=== PATIENT | male | born 1990 | race Caucasian/White ===

== ENCOUNTER 2023-02-26 09:18 | Emergency (ER) | payer BC, SELFPAY ==
[2023-02-26 09:27] VITALS: BP 149/106; PULSE 74; RESP 16; O2SAT 98
--- NOTE | 2023-02-26 10:03 | W.ED.GENAD ---
Discharge Plan Disposition Patient Disposition: Home Condition: Stable Discharge Details Clinical Impression: Depression, Chronic post-traumatic stress disorder Primary Care Provider: None,None ED Provider: Emely Grimes Home Meds and New Rx's Prescriptions: Continued cyclobenzaprine 10 mg tablet 10 mg PO TID PRN meloxicam 15 mg tablet 15 mg PO DAILY Discharge Instructions Instructions: Depression (ED), Anxiety (ED) Additional Instructions: Please continue with the safety plan as set forth by [facility] services. They are helping to get you in with local mental health services. Use to include monitoring for warning signs and severe internal coping strategies. They are available at any time at [phone]. If you develop increased depression, thoughts of self-harm, thoughts of harming others please seek care emergently once again. Please also reach out to local therapist this was given to you by other emergency teams. Please discuss medication options further with your primary care at upcoming appointment. Referrals: GERMAN MERLOS NP [ NON-[facility] STAFF PHYSICIAN] - Discharge Data Discharge Date/Time-TO BE ENTERED AT DEPARTURE: 02/26/23 12:36 Medical Decision Making Patient is a pleasant 32-year-old male, company by significant other, with chief complaint of increased anxiety, depression. States that this has been an ongoing issue for the past several years. Has lost many family members or close close to him. He believes that he also suffer from anxiety, depression, PTSD and ADHD prior to these events. 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 He denies ever suffering from SI/HI. Has not worked with MH providers in the past. However, primary care has prescribed temporary prescriptions of xanax and valium which worked well. He has since switch PCP and has not yet worked on his MH concerns. Also advisees that he has been on several antidepressants but that these caused worsening MH. 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 On exam, patient appears nontoxic. BP elevated at 149/106 which he states is chronic. Reports he recently established with local PCP and has upcoming appointment, will discuss then. Have asked rosalinda HAMILTON. CAlled PCP, awaiting call back. Patient seen by , safety plan and referrals set up. Spoke with patients PCP. At this time, as he has had several meds in the past, some of which cause HI, I am concerned about potential SE of starting medication at this time. this is not an acute change in his baseline MH. He feels safe at home, well supported by spouse. He feels like the f/u set up and plan with ALFONSO will be supportive for him. Patient has upcoming appointment in one week with PCP. Strict return precautions given. All of his questions and concerns were addressed, they are in agreement with this plan. HPI General Date/Time Provider Initiated Documentation: 02/26/23 09:51. Limitations to Documentation: no limitations. Information obtained by: patient, family () and RN notes reviewed. History of Present Illness 32 year old M presents to the emergency department with the chief complaint of PTSD, depression, anxiety, ADHD, described as moderate and similar to prior episodes (long history, no acute change), Patient started experiencing this year(s) (has had many losses over recent years) and it has been constant. No relieving factors improve symptom(s), No exacerbating factors reported . Patient notes no other symptoms.. Patient did receive the following treatments prior to arrival, other (hood sbeen on medications historically, none now, good luck with xanax and valium) Related Data Home Medications Medication Instructions Recorded Confirmed cyclobenzaprine 10 mg tablet 10 mg PO TID PRN 02/13/23 02/26/23 meloxicam 15 mg tablet 15 mg PO DAILY 02/13/23 02/26/23 Allergies Allergy/AdvReac Type Severity Reaction Status Date / Time penicillin G Allergy Verified 02/26/23 09:30 General Stated Complaint: Anxiety KLAUDIA: 3 Review of Systems Constitutional Constitutional: Reports as per HPI, Denies chills, Denies fever(s) and Denies weakness Cardiovascular Cardiovascular: Reports as per HPI, Denies chest pain and Denies dyspnea Respiratory Respiratory: Reports as per HPI, Denies cough and Denies dyspnea Integumentary/Breasts Skin/Breast: Reports as per HPI and Denies rash Neurologic Neurologic: Denies abnormal movements, Denies abnormal speech, Denies behavioral changes, Denies paresthesias and Denies weakness Psychiatric Psychiatric: Reports as per HPI, Reports anxiety, Denies behavioral changes, Denies change in appetite, Reports depression, Reports mood swings ( helps during this), Denies homicidal ideation and Denies suicidal ideation (denies ever having SI. historically) PFSH All Active Problems (Updated 02/26/23 @ 12:18 by DARRON Mena) Depression (Chronic) Chronic post-traumatic stress disorder (Acute) Medical History (Updated 02/26/23 @ 12:18 by DARRON Mena) Back muscle spasm Smoker Synovial cyst of popliteal space [Wayne], left knee Social History Smoking/Tobacco Use Status: Current every day Tobacco Type: smokeless tobacco Smoking risk assessment performed?: Yes Drug use: Daily Substance use type: marijuana Do you feel safe at home: Yes Do you feel safe in your relationship?: Yes Exam Const General: cooperative, healthy appearing, comfortable, no acute distress, well developed and well groomed Nutritional Appearance: average body habitus and well nourished Orientation: alert and awake Eyes General: appearance normal, both eyes and all related structures Resp Effort & Inspection: normal respiratory effort, able to speak in complete sentences and no respiratory distress Auscultation: clear to auscultation bilaterally, no rales, no rhonchi and no wheezes Cardio Rate: regular rate Rhythm: regular rhythm Heart Sounds: S1 normal and S2 normal Skin General skin exam: no rashes or lesions noted Trauma: no lacerations or abrasions Neuro General: patient alert and patient awake Cognition: normal cognition Speech: speech normal Gait: normal gait Psych Appearance: grossly normal and well kempt Mental Status: mental status grossly normal Speech and Movement: speech and movement normal Mood: congruent mood Affect: normal affect Attitude: cooperative Thought Process: normal Thought Content: normal Insight: fair Judgment: fair Course Vital Signs Vital signs: Vital Signs Pulse 74 02/26/23 09:27 Respiratory Rate 16 02/26/23 09:27 Blood Pressure 149/106 H 02/26/23 09:27 Pulse Oximetry 98 02/26/23 09:27 Pulse 74 02/26/23 09:27 Respiratory Rate 16 02/26/23 09:27 Respiratory Effort Normal 02/26/23 09:32 Respiratory Depth Normal 02/26/23 09:32 Respiratory Pattern Normal 02/26/23 09:32 Blood Pressure 149/106 H 02/26/23 09:27 Blood Pressure Position Sitting 02/26/23 09:27 Pulse Oximetry 98 02/26/23 09:27 Oxygen Delivery Method Room Air 02/26/23 09:27 Oxygen Flow Rate 0 02/26/23 09:27 Pain Level 0 02/26/23 09:27 PAWSS Have you Been Recently Intoxicated or Drunk Within the Last 30 days?: Yes Have you Ever Experienced Previous Episodes of Alcohol Withdrawal?: No Have you ever Experienced Withdrawal Seizures?: No Have you ever Experienced Delirium Tremens(DT)s?: No Have you ever undergone Alcohol Rehabilitation Treatment (i.e, inpt ot outpatient treatment programs)?: No Have you ever Experienced Blackouts?: No Have you ever Combined Alcohol with other Downers within the last 90 days?: Yes Have you ever Combined Alcohol with any other Substance of Abuse during the last 90 days?: No Positive Blood Alcohol level on Presentation? [PCS.BAL]: No Evidence of Increased Autonomic Activity (i.e. HR>120, tremor, sweating, agitation, nausea)?: No Result: 1
--- NOTE | 2023-02-26 11:28 | NUR.NOTE ---
Nursing Note: care management referral sent for dentist
--- NOTE | 2023-02-26 15:45 | PDOC.MHCN ---
Date of service: 02/26/23 Time of Service: 10:25 PHQ-9 Over the last 2 weeks, how often have you been bothered by any of the following problems? 1. Little interest or pleasure in doing things: several days 2. Feeling down, depressed, or hopeless: several days 3. Trouble falling or staying asleep, or sleeping too much: nearly every day 4. Feeling tired or having little energy: more than half the days 5. Poor appetite or overeating: not at all 6. Feeling bad about yourself - or that you are a failure or have let yourself and your family down: more than half the days 7. Trouble concentrating on things, such as reading the newspaper or watching television: nearly every day 8. Moving or speaking so slowly that other people could have noticed? - Or the opposite - being so fidgety or restless that you have been moving around a lot more than usual: several days 9. Thoughts that you would be better off or of hurting yourself in some way: not at all Total score: 13 If you checked off any problems, how difficult have these problems made it for you to do your work, take care of things at home, or get along with other people?: very difficult PHQ-9 Results: Positive Source: Developed by Drs. Lincoln Gonzalez, Michelle Davis, Jonathan Damon and colleagues, with an educational maryanne from [employer]. Suicide Severity Rate CSSRS Have you wished you were or wished you could go to sleep and not wake up?: No Have you actually had any thoughts of killing yourself?: No CSSRS3 Have you ever done anything, started to do anything or prepared to do anything to end your life?: No Screening Score Total Score: 0 Screening: Negative Mental Health Emergency Note Release [facility] release signed:: No Reason for Visit Mickie presented to the ED due to ongoing issues with anxiety and depression. He does not want to continue on this way and would like to begin exploring outpatient options. In the last 2 weeks has the pt presented for ES prior to today?: No Client Information Client is: New Well Housed: Yes Non Suicidal Self Injury Current: No History: No Safety Risk/Harm to Self or Others Current Ideation to Harm Self or Others: No Risk: Does risk to harm exist?: No Risk: Low Risk Duty to warn indicated: No Additional Issues: Assaultive/Threatening Behavior: No Medical Concerns: No Client engaged in active self harm w/weapon: No Threatening to run away: No Child reported abuse/neglect: No Voluntarily presenting for services: Yes Domestic violence is a concern: No Extreme Psychosis or extreme behavior is present: No Impression Client is Mathew Leblanc a 32-year-old male who presented into the ED at [facility] 02/26 to be seen after an anxiety attack. Client was not indorsing SI or HI at the time of the assessment. Client does not have a history of hospitalizations or past attempts in his lifetime. And per this client's report has never has any thoughts of SI or HI in his lifetime. Early on in this assessment, Client reported having 6 natural supports in his life over the last 5-6 years. None dying from suicide, all from pervious health conditions or natural deaths. 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 Per client's report, the lack of mental and physical activity due to the career change has been affecting his mental health as well.? Client appeared well groomed and was cooperative and friendly to this machine sign writer. The client's mood was reported to be okay by the client, and he further added that he does not sleep well but has never slept well. The clients normal sleep pattern looking like 1-2 hours of uninterrupted sleep then waking up for 20-30 minutes and then starting that cycle over again. Client reported the usage of THC to help him sleep, smoking every night before bed. Per clients report his appetite is normal with his eating patterning being two meals a day and snacks. Client reported no Hallucinations or delusions. But per client report has a history of anxiety, depression, PTSD, and self-diagnosis ADHD.? Client reported to this machine sign writer a past history of working in the [employer] while attending [employer] for a bachelors in computer [employer]. Client reported to the ED to help expedite the process of being seen by a therapist. Client scored a 11 out of 27 on the PHQ-9 and a 0 out of 10 when asked about his SI intent. Client reported not wishing his was or could go to sleep and not walk up and no to having any thoughts of killing himself.? When Client was asked about past substance abuse, Client reported to this machine sign writer that in his early twenties he did experiment with Cocaine, mushroom, and pain pills after a surgery that he underwent at the time. Per client's report, client is an on off drinker, drinking for a few days and then not drinking for a few days and smokes THC to help him sleep at night.? Client's natural supports at this time in his life are his spouse Lyly, who can be reached at and numerous friends. And per client report is strong with helping other people, his ability to fix things, and is great with dogs and kids.? At this time the Client is currently looking for assistance in getting set up with a therapist and potentially getting assistance in finding a dentist.? ([facility] Rajinder) Resources Reosurces reviewed and given:: [phone], Community therapist, [facility] and Other Plan/Disposition Recommended Disposition: PCP/Office visit, [facility]: Therapy and Therapy. Person reported agreement to plan: Yes Reports/communication Outcome discussed with: ED/Personnel
--- NOTE | 2023-02-27 08:40 | CMACTNOTE_ITS ---
Date of service: 02/27/23 Time of Service: 08:40 Care Management Activity Note Activity Note Text Activity Note Text: ANDREA receives a request from ED provider to assist Mathew in finding a dentist. CM telephones Mathew and provides contact information for [facility] ([phone]) as they are currently accepting new patients.
== END 2023-02-26 12:36 | disposition home or self-care (01) ==
PROVIDERS: Emergency Provider Physician Assistant
DX: F32.A Depression, unspecified (principal); F41.9 Anxiety disorder, unspecified; F43.12 Post-traumatic stress disorder, chronic
CPT/HCPCS: 99284; 99283

== ENCOUNTER 2023-03-07 11:27 | Outpatient (CLI) | payer BC, SELFPAY ==
--- NOTE | 2023-03-07 09:30 | DI.RAD_ITS ---
Exam(s) XR KNEE LT 3V AP,LAT,VINAYAK EXAM: XR KNEE LT 3V AP,LAT,VINAYAK CLINICAL HISTORY: Left knee pain. TECHNIQUE: 2D digital imaging was performed. COMPARISON: No exams were available for comparison FINDINGS: 3 views No evidence of fracture nor prominent joint effusion. Bone density normal. No osseous lesions. No degenerative changes seen. No osteochondral defects. IMPRESSION: No significant radiograph findings in the knee. DATA REPOSITORY: RADIATION DOSE DELIVERED:
== END 2023-03-07 11:28 | disposition home or self-care (01) ==
LOC: DIORS 11:27
PROVIDERS: PCP Nurse Practitioner Family; Referring Provider Nurse Practitioner Family; Visit Provider Student in an Organized Health Care Education/Training Program
DX: M25.562 Pain in left knee (principal)
CPT/HCPCS: 73562

== ENCOUNTER 2023-03-07 15:38 | Outpatient (REF) | payer BC, SELFPAY ==
[2023-03-07 16:23] LABS: Abs Immature Grans 0.07 10^3/uL (0.0-0.06); Absolute Basophil Count 0.03 10^3/uL (0.0-0.2); Absolute Eosinophil Count 0.01 10^3/uL (0.0-0.7); Absolute Lymphocyte Count 0.82 10^3/uL (1.2-3.4); Absolute Monocyte Count 0.23 10^3/uL (0.1-0.8); Absolute Neutrophil Count 7.92 10^3/uL (1.2-6.7); Basophils % 0.3; Eosinophils % 0.1; HGB 15.2 g/dL (13.5-17.5); Immature Grans % 0.8; MCH 32.8 pg (27.0-33.0); MCHC 35.3 % (32.0-36.0); MCV 93 fL (80-95); MPV 10.7 fL (8.0-11.0); Monocytes % 2.5; Neutrophils % 87.3; Platelet Count 243 10^3/uL (130-400); RBC 4.63 10^6/uL (4.36-5.78); RDW 11.7 % (11.8-14.1); RDW-SD 39.9 fL; WBC 9.08 10^3/uL (4.4-10.8)
[2023-03-07 16:48] LABS: ALT 211 U/L (16-63); AST 44 U/L (15-37); Albumin 4.4 g/dL (3.4-5.0); Alkaline Phosphatase 115 U/L (46-116); Anion Gap 11.4 mmol/L (3-11); BUN 13 mg/dL (7-18); Bilirubin, Total 0.5 mg/dL (0.2-1.0); CO2 27.6 mmol/L (21.0-32.0); Calcium 10.2 mg/dL (8.5-10.1); Chloride 101 mmol/L (98-107); Estimated GFR 101.92 (mL/min/1.73m2); Glucose 157 mg/dL (74-106); Potassium 4.1 mmol/L (3.5-5.1); Sodium 140 mmol/L (136-145); TSH (W/Ref FT4) 0.84 uIU/mL (0.36-3.74); Total Protein 7.8 g/dL (6.4-8.2); Uric Acid 9.9 mg/dL (3.5-7.2)
== END 2023-03-07 15:39 | disposition home or self-care (01) ==
LOC: NCHCN 15:38
PROVIDERS: PCP Nurse Practitioner Family; Visit Provider Nurse Practitioner Family
DX: R03.0 Elevated blood-pressure reading, without diagnosis of hypertension (principal); F43.10 Post-traumatic stress disorder, unspecified; M10.9 Gout, unspecified; J45.20 Mild intermittent asthma, uncomplicated; M72.2 Plantar fascial fibromatosis; F95.8 Other tic disorders; F32.89 Other specified depressive episodes
CPT/HCPCS: 80053; 84443; 84550; 85025

== ENCOUNTER 2023-04-30 18:09 | Outpatient (REF) | payer BC, SELFPAY ==
[2023-04-30 21:13] LABS: Abs Immature Grans 0.03 10^3/uL (0.0-0.06); Absolute Basophil Count 0.02 10^3/uL (0.0-0.2); Absolute Eosinophil Count 0.14 10^3/uL (0.0-0.7); Absolute Lymphocyte Count 1.24 10^3/uL (1.2-3.4); Absolute Monocyte Count 0.48 10^3/uL (0.1-0.8); Absolute Neutrophil Count 7.13 10^3/uL (1.2-6.7); Basophils % 0.2; Eosinophils % 1.5; HCT 41.2 % (40.0-50.0); HGB 14.5 g/dL (13.5-17.5); Immature Grans % 0.3; Lymphocytes % 13.7; MCH 32.1 pg (27.0-33.0); MCHC 35.2 % (32.0-36.0); MCV 91 fL (80-95); MPV 10.2 fL (8.0-11.0); Monocytes % 5.3; Platelet Count 240 10^3/uL (130-400); RBC 4.52 10^6/uL (4.36-5.78); RDW 11.3 % (11.8-14.1); RDW-SD 37.7 fL; WBC 9.04 10^3/uL (4.4-10.8)
[2023-04-30 21:54] LABS: C-Reactive Protein 0.12 mg/dL (0.0-0.3)
[2023-05-02 11:25] LABS: Lyme Ab w Rflx to Lyme Confirm Negative (Negative)
== END 2023-04-30 18:10 | disposition home or self-care (01) ==
LOC: LBN 18:09
PROVIDERS: PCP Nurse Practitioner Family; Visit Provider Nurse Practitioner Family
DX: M25.462 Effusion, left knee (principal)
CPT/HCPCS: 85025; 86140; 86618

== ENCOUNTER 2023-08-15 05:27 | Outpatient (CLI) | payer BC, SELFPAY ==
[2023-08-15 16:12] LABS: Abs Immature Grans 0.02 10^3/uL (0.0-0.06); Absolute Basophil Count 0.04 10^3/uL (0.0-0.2); Absolute Eosinophil Count 0.16 10^3/uL (0.0-0.7); Absolute Lymphocyte Count 1.66 10^3/uL (1.2-3.4); Absolute Monocyte Count 0.44 10^3/uL (0.1-0.8); Absolute Neutrophil Count 4.75 10^3/uL (1.2-6.7); Basophils % 0.6; Eosinophils % 2.3; HCT 46.5 % (40.0-50.0); HGB 16.3 g/dL (13.5-17.5); Immature Grans % 0.3; Lymphocytes % 23.5; MCHC 35.1 % (32.0-36.0); MCV 89 fL (80-95); MPV 9.8 fL (8.0-11.0); Monocytes % 6.2; Neutrophils % 67.1; Platelet Count 297 10^3/uL (130-400); RBC 5.25 10^6/uL (4.36-5.78); RDW 12.7 % (11.8-14.1); RDW-SD 41.2 fL; WBC 7.07 10^3/uL (4.4-10.8)
[2023-08-15 16:20] LABS: Prothrombin Time 10.4 sec (9.1-11.1)
[2023-08-15 16:58] LABS: ALT 61 U/L (16-63); AST 21 U/L (15-37); Albumin 4.7 g/dL (3.4-5.0); Alkaline Phosphatase 86 U/L (46-116); Anion Gap 11.1 mmol/L (3-11); BUN 13 mg/dL (7-18); Bilirubin, Total 0.6 mg/dL (0.2-1.0); CO2 27.9 mmol/L (21.0-32.0); Calcium 10.2 mg/dL (8.5-10.1); Chloride 98 mmol/L (98-107); Estimated GFR 101.92 (mL/min/1.73m2); GGT 88 U/L (15-85); Glucose 100 mg/dL (74-106); Potassium 3.4 mmol/L (3.5-5.1); Sodium 137 mmol/L (136-145); Total Protein 8.1 g/dL (6.4-8.2); Uric Acid 3.9 mg/dL (3.5-7.2)
[2023-08-15 19:31] LABS: Sperm(Post-Vasectomy) Present
[2023-08-17 08:22] LABS: Hepatitis C Ab w Rflx HCV PCR Negative (Negative)
== END 2023-08-15 05:28 | disposition home or self-care (01) ==
LOC: LBO 05:27
PROVIDERS: PCP Nurse Practitioner Family; Visit Provider Nurse Practitioner Family
DX: Z98.52 Vasectomy status (principal)
CPT/HCPCS: 36415; 80053; 86803; 82977; 83735; 84550; 85025; 85610; 89321

== ENCOUNTER 2024-03-06 07:36 | Day surgery (SDC) | payer BC, SELFPAY ==
[2024-03-06 07:45] VITALS: BP 125/83; PULSE 76; RESP 16; TEMP 36.6; O2SAT 98
--- NOTE | 2024-03-06 08:14 | W.PM.HP.N ---
Date of service: 03/06/24 Time of Service: 08:14 Assessment and Plan Assessment and plan (1) H/O vasectomy: Status: Acute Assessment and plan: For repeat vasectomy History of Present Illness History of Present Illness Chief Complaint: Elective sterilization Narrative: This is a 33-year-old gentleman who had a vasectomy about 5 years ago. His initial POLST procedural semen analysis showed the absence of sperm. More recently, his partner became when he was retested sperm are now present in his ejaculate. He presents for repeat vasectomy. Review of Systems Narrative: No fevers or chills No vision change or dysphasia No diabetes or thyroid dysfunction Hx asthma. No hemoptysis No chest pain or palpitations No nausea, vomiting, hepatitis, ulcers, jaundice No seizures, strokes or peripheral neuropathy No bleeding disorders or anemia Hx gout, plantar fasciitis PFSH All Active Problems Elevated BP without diagnosis of hypertension (Acute) Asthma (Chronic) Tic disorder (Acute) Anxiety and depression (Chronic) PTSD (post-traumatic stress disorder) (Acute) Gout (Chronic) Plantar fasciitis (Acute) Cannabis use disorder (Acute) Sleep disorder (Acute) Poor concentration (Acute) Elevated LFTs (Acute) ADHD (Acute) Knee swelling (Acute) Alcohol abuse (Chronic) H/O vasectomy (Acute) Weight loss (Acute) Internal derangement of left knee (Acute) Medical History Back muscle spasm Synovial cyst of popliteal space [Wayne], left knee Smoker Surgical History Hx of shoulder surgery Social History Smoking/Tobacco Use Status: Current every day Tobacco Type: smokeless tobacco Smoking risk assessment performed?: Yes Alcohol Intake: former Drug use: Daily Substance use type: marijuana Details: t-1 Housing: apartment Do you feel safe at home: Yes Do you feel safe in your relationship?: Yes Meds Allergies and Home Medications Allergies Allergy/AdvReac Type Severity Reaction Status Date / Time penicillin G Allergy unknown Verified 03/05/24 12:02 Home Medications Medication Instructions Recorded Confirmed Type acetaminophen 325 mg capsule 325 mg PO ONCE PRN 08/21/23 03/06/24 History (Tylenol) allopurinol 300 mg tablet 300 mg PO DAILY 08/21/23 03/06/24 History dextroamphetamine-amphetamine 5 mg 5 mg PO DAILY 08/21/23 03/06/24 History tablet (Adderall) colchicine 0.6 mg capsule 0.6 mg PO DAILY 02/18/24 03/06/24 History lisdexamfetamine 40 mg capsule 40 mg PO DAILY 02/18/24 03/06/24 History (Vyvanse) Exam Const General: cooperative Neck Neck: supple Resp Effort & Inspection: normal respiratory effort Auscultation: clear to auscultation bilaterally Cardio Rate: regular rate Rhythm: regular rhythm GI Palpation: soft and no masses Other: Thickening of both spermatic cords Neuro General: patient alert, patient awake and patient oriented x3 Results Last Vital Signs Temp 36.6 C 03/06/24 07:45 Pulse 76 03/06/24 07:45 Resp 16 03/06/24 07:45 BP 125/83 03/06/24 07:45 Pulse Ox 98 03/06/24 07:45 Time Spent Time spent with Patient: <40 minutes Time was spent: other
[2024-03-06] MEDS: Lactated Ringers 1,000 ML 80 ML IV (08:28)
--- NOTE | 2024-03-06 08:51 | W.ANESPRE ---
General Info Date of Service Date Performed: 03/06/24 Height: 6 ft 1 in Weight: 76.9 kg Body Mass Index (BMI): 22.4 Surgical Procedure: Operation Date: 03/06/24 08:55 Proposed Procedure Side Surgeon p Vasectomy Tito Law MD Actual Procedure Side Surgeon p Vasectomy Bilateral Tito Law MD Pre-Op Diagnosis Post-Op Diagnosis h/o Vasectomy h/o Vasectomy Meds Allergies and Home Medications Allergies Allergy/AdvReac Type Severity Reaction Status Date / Time penicillin G Allergy unknown Verified 03/05/24 12:02 Home Medication Medication Instructions Recorded acetaminophen 325 mg capsule 325 mg PO ONCE PRN 08/21/23 (Tylenol) allopurinol 300 mg tablet 300 mg PO DAILY 08/21/23 dextroamphetamine-amphetamine 5 mg 5 mg PO DAILY 08/21/23 tablet (Adderall) colchicine 0.6 mg capsule 0.6 mg PO DAILY 02/18/24 lisdexamfetamine 40 mg capsule 40 mg PO DAILY 02/18/24 (Vyvanse) Current Visit Medications: Current Medications Generic Name Dose Route Start Last Admin Trade Name Freq PRN Reason Stop Dose Admin Ringer's Solution 1,000 mls @ 80 mls/hr 03/06/24 06:00 03/06/24 08:28 IV 03/06/24 23:59 80 mls/hr INFUSION MINE Administration IV Miscellaneous Supplies 1 each 03/06/24 06:00 Iv Access IV 03/06/24 23:59 DIRECTED MINE Sodium Chloride 0 ml 03/06/24 06:00 Normal Saline Flush 10 Ml Syr IV 03/06/24 23:59 PRN PRN Sodium Chloride 0 ml 03/06/24 06:00 Normal Saline 10 Ml Vial IJ 03/06/24 23:59 DIRECTED PRN Sterile Water 0 ml 03/06/24 06:00 Water,Injection,Sterile 10 Ml Vial IJ 03/06/24 23:59 DIRECTED PRN PFSH Active Problems Active Problems: Problem Status Onset Code Elevated BP without diagnosis of hypertension R03.0 Asthma J45.909 Tic disorder F95.9 Anxiety and depression F41.9, F32.A PTSD (post-traumatic stress disorder) F43.10 Gout M10.9 Plantar fasciitis M72.2 Cannabis use disorder F12.90 Sleep disorder G47.9 Poor concentration R41.840 Elevated LFTs R79.89 ADHD F90.9 Knee swelling M25.469 Alcohol abuse F10.10 H/O vasectomy Z98.52 Weight loss R63.4 Internal derangement of left knee M23.92 Medical History Medical History Back muscle spasm Synovial cyst of popliteal space [Wayne], left knee Smoker Medical History Comments:: daily THC; chewed tobacco last night 1999 Surgical History Surgical History Hx of shoulder surgery Tobacco Smoking/Tobacco Use Status: Current every day Tobacco Type: smokeless tobacco Alcohol Alcohol Intake: former Substance Use Substance use: Daily Substance use type: marijuana Details: t-1 Vital Signs and Lab Results Vital Signs Most Recent Vital Signs in EMR: Most Recent Vital Signs Temp Pulse Resp BP Pulse Ox 36.6 C 76 16 125/83 98 03/06/24 07:45 03/06/24 07:45 03/06/24 07:45 03/06/24 07:45 03/06/24 07:45 Lab Results Blood Type / Crossmatch: No Data to Display Complete Blood Count: No Data to Display Complete Metabolic Panel: No Data to Display Liver Function Panel: No Data to Display Coagulation Panel: No Data to Display Cardiac Panel: No Data to Display Arterial Blood Gas: No Data to Display Venous Blood Gas: No Data to Display Pancreas Panel: No Data to Display Thyroid Panel: No Data to Display Infectious Disease: No Data to Display Blood Cultures: No Data to Display Toxicology Panel: No Data to Display Anesthesia Assessment and Plan Anesthesia History Personal History: No History of Anesthesia Complications Family History: No Family History of Anesthesia Complications Exercise Tolerance Exercise Tolerance: Metabolic Equivalents>4 Pertinent Negatives Pertinent Negatives: No Symptoms of GERD Cardiac & Pulmonary Exam Cardiac Exam: Normal S1/S2 Heart Sounds Pulmonary Exam: Clear Bilateral Breath Sounds Implantable Cardiac Device Does patient have a Pacemaker or an ICD?: No Airway Exam Known Difficult Airway: No Mallampati Class: 1 Mouth Opening: Normal (> 3cm) Thyromental Distance: Greater than 3 cm Neck Range of Motion: Full ROM Neck Circumference: Normal Teeth Condition: Normal Dentition ASA Classification ASA Score: ASA 2 Emergency Case?: No NPO Status NPO Status: NPO Clears >2 hours, Solids >8 hours Anesthesia Plan Resuscitation Status: Full Code Anesthesia Technique: General Anesthesia Airway Planned: Natural Airway Monitors Used: Standard Monitors Preoperative Comments:: Daily THC use
[2024-03-06 08:52] VITALS: BMI 22.4
[2024-03-06] MEDS: Bupivacaine 0.5% Pres-Free 30 ML VIAL (09:24)
--- NOTE | 2024-03-06 09:30 | ROE_ITS ---
Date of service: 03/06/24 Time of Service: 09:31 Operative Note Operative Note DATE OF PROCEDURE: 03/06/24 PRE-OP DIAGNOSIS: Elective Sterilization POST-OP DIAGNOSIS: same PROCEDURE: vasectomy SURGEON: Tito Law ANESTHESIA TYPE: Local By Surgeon and General:No Airway Refer to Anesthesia Record ESTIMATED BLOOD LOSS: 5 PATHOLOGY: none sent COMPLICATIONS: None Patient was transported to: same day Patient's condition: stable Indications: This is a 33-year-old gentleman who underwent vasectomy about 5 years ago. He has an initial postprocedural sample showed no sperm present. About 5 years later, his became and the gentleman was retested. He now has a viable sperm.. He presents for repeat vasectomy Procedure Description: The patient was brought to the operating room on 03/06/2024. No preprocedural antibiotics were given. The patient was placed in the supine position. His genitalia was prepped with Betadine. The area was then draped. We began on the left side and isolated the vasa up against the scrotal skin. The skin was infiltrated with 1% lidocaine. The skin was then opened using a scalpel for a technique. The vas was grasped with a ring forceps. The vas was dissected free from its surrounding tissue. A 3 cm section of the vas was then excised. Each cut end of the vas was cauterized using the hand-held Bovie. The more proximal end of the vas was then buried back beneath the adventitia using simple interrupted 4-0 chromic suture. The same procedure was performed on the patient's right side. On the right, additional scarring was encountered which made the dissection a bit more difficult, but we were again able to excise a 3 cm section of Charles. Each cut and was cauterized and the more proximal end was buried back beneath the adventitia with a simple interrupted 4-0 chromic suture. Neither of the vasa specimens were sent to pathology. This is the current recommendation of the [place] [employer]. Both wounds were inspected for hemostasis. The skin was then closed with skin glue. Fluff dressings and a scrotal support were then applied.
[2024-03-06 09:35] VITALS: BP 118/70; PULSE 75; RESP 18; TEMP 36.2; O2SAT 93
--- NOTE | 2024-03-06 09:35 | W.PM.DSUDISC ---
Date of service: 03/06/24 Time of Service: 09:35 Discharge Plan Disposition Patient Disposition: Home Condition: Stable Discharge Details Reason For Visit: vasectomy Attending Provider: Tito Law Primary Care Provider: GERMAN MERLOS Home Meds and New Rx's Prescriptions: New ketorolac 10 mg tablet 10 mg PO Q6H PRN (Reason: pain) 3 Days Qty: 12 0RF Rx Instructions: may take with tylenol but NOT with other NSAIDs No Action lisdexamfetamine [Vyvanse] 40 mg capsule 40 mg PO DAILY colchicine 0.6 mg capsule 0.6 mg PO DAILY Patient Comments: Pt reports not taking this anymore allopurinol 300 mg tablet 300 mg PO DAILY dextroamphetamine-amphetamine [Adderall] 5 mg tablet 5 mg PO DAILY acetaminophen [Tylenol] 325 mg capsule 325 mg PO ONCE PRN Discharge Instructions Additional Instructions: no lifting over 10 pounds for 48 hours minimum no ejaculation for 7 days wear tight supportive shorts and use ice packs to the scrotum (a bag of frozen peas works well) off and on while awake for next 48 hours OK to shower and remove dressings tomorrow dropoff semen sample to my office in @ 12 weeks Activity:: see additional instructions Remove Dressings/Wound Care:: 24 hours Shower/Bathe:: 24 hours Diet:: As Tolerated Discharge Orders Discharge Orders: Discharge Order (Routine); Ordered 03/06/24 Ordered By: Tito Law DS: Diagnosis Discharge Diagnosis (1) H/O vasectomy: Status: Acute
--- NOTE | 2024-03-06 09:43 | W.ANESPOSTOP ---
Postoperative Evaluation Date, Time and Location Date Performed: 03/06/24 Time Performed: 09:43 Patient Location: Day [facility] Unit Vital Signs Most Recent Imported Vital Signs: Most Recent Vital Signs Temp Pulse Resp BP Pulse Ox 36.6 C 76 16 125/83 98 03/06/24 07:45 03/06/24 07:45 03/06/24 07:45 03/06/24 07:45 03/06/24 07:45 Pain Score Most Recent Pain Score: Most Recent Pain Score Pain Level 0 03/06/24 07:45 Assessment Mental Status: Awake (Alert & Oriented to Patient Baseline) Airway and Respiratory Function: Patent airway with normal (patient baseline) respiratory exam Cardiovascular Function: Hemodynamically Stable Hydration Status: Adequately Hydrated Nausea & Vomiting: No Nausea or Vomiting Pain: Pt. Denies Any Pain Peripheral Nerve Block: Patient did not receive a nerve block
[2024-03-06 10:10] VITALS: BP 112/82; PULSE 70; RESP 16; TEMP 36.2; O2SAT 100
== END 2024-03-06 10:54 | disposition home or self-care (01) ==
PROVIDERS: PCP Nurse Practitioner Family; Visit Provider Urology
PROC: (CPT 55250; principal; 2024-03-06 08:45)
DX: Z30.2 Encounter for sterilization (principal); N99.89 Other postprocedural complications and disorders of genitourinary system; J45.909 Unspecified asthma, uncomplicated; F90.9 Attention-deficit hyperactivity disorder, unspecified type; F10.10 Alcohol abuse, uncomplicated; F43.10 Post-traumatic stress disorder, unspecified
CPT/HCPCS: 55250; J0131; J0665; J1100; J1885; J2001; J2250; J2405; J2704

== ENCOUNTER 2024-06-23 02:08 | Outpatient (CLI) | payer BC, SELFPAY ==
--- NOTE | 2024-06-23 10:15 | TELEFU_ITS ---
Date of service: 06/23/24 Time of Service: 08:30 Nutrition Note NOTE: Mathew referred for nutrition visit for weight mgt struggles - he states he has a strong history of struggling with his weight. He is 72 tall and currently weighs 171lbs which results in a BMI currently of 22.6 and is considered wnl. He shares his weight was up in the 235-240lb range about 1.5 years ago but states this was due to his alcohol intake has has since stopped drinking alcohol. He wants to gain a little more weight but sounds more interested in body recomposition and adding lean mass. We reviewed some targets for macros and looking at menu set-ups that consider lower food budget he manages currently. Reviewed recommendations for macros as 2300-2500kcals for small,slow wt gain and emphasized about 1g per pound body weight in protein with 30-50g per meal to help stimulate muscle synthesis and combining with strength training at least 3 times per week. suggested 240g CHO total and make sure 30 or less comes from added sugar and 30 or more comes from fiber. Reviewed slower glycemic starch choices like legumes (also cheap), inact traditional grains and less refined starchy veggies. Suggested he could use 30g whey protein powder daily to supplement protein goal. offered him some suggested resources for helping to plan menus to macros and tweak them as he goes. 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 Mathew left with my contact info should he want to run some of his menu ideas by me for comment or desire any further resources to help him in his planning. Time Spent in Nutritional Counseling and Treatment: 40 min
== END 2024-06-23 02:09 | disposition home or self-care (01) ==
LOC: DS 02:08
PROVIDERS: PCP Nurse Practitioner Family; Visit Provider Dietitian, Registered
DX: F90.9 Attention-deficit hyperactivity disorder, unspecified type (principal)
CPT/HCPCS: 00123; 97802

== ENCOUNTER 2024-06-27 11:27 | Outpatient (CLI) | payer BC, SELFPAY ==
[2024-06-27 10:24] LABS: HCT 42.2 % (40.0-50.0); HGB 14.8 g/dL (13.5-17.5); MCH 31.6 pg (27.0-33.0); MCHC 35.1 % (32.0-36.0); MCV 90 fL (80-95); MPV 8.9 fL (8.0-11.0); Platelet Count 211 10^3/uL (130-400); RBC 4.68 10^6/uL (4.36-5.78); RDW 12.3 % (11.8-14.1); WBC 4.37 10^3/uL (4.4-10.8)
[2024-06-27 11:17] LABS: ALT 64 U/L (16-63); AST 21 U/L (15-37); Albumin 3.9 g/dL (3.4-5.0); Alkaline Phosphatase 69 U/L (46-116); Anion Gap 9.8 mmol/L (3-11); BUN 16 mg/dL (7-18); Bilirubin, Total 0.56 mg/dL (0.2-1.0); CO2 28.2 mmol/L (21.0-32.0); CREATININE 0.9 mg/dL (0.70-1.30); Calcium 9.1 mg/dL (8.5-10.1); Chloride 105 mmol/L (98-107); Estimated GFR 114.93 (mL/min/1.73m2); Glucose 93 mg/dL (74-106); Potassium 4.2 mmol/L (3.5-5.1); Sodium 143 mmol/L (136-145); Total Protein 6.7 g/dL (6.4-8.2)
== END 2024-06-27 11:28 | disposition home or self-care (01) ==
LOC: LBO 11:27
PROVIDERS: PCP Nurse Practitioner Family; Visit Provider Nurse Practitioner Psychiatric/Mental Health
DX: F41.1 Generalized anxiety disorder (principal)
CPT/HCPCS: 36415; 80053; 85027